=== PATIENT | female | born 1995 | race African-American/Black ===

== ENCOUNTER 2016-07-04 10:52 | Emergency (ER) | payer OTHER ==
[2016-07-04 10:55] VITALS: BP 122/76; PULSE 78; TEMP 98.1; BMI 34.7
--- NOTE | 2016-07-04 11:23 | PDOC ---
History of Present Illness - General Chief Complaint: Foreign Body (FB) Stated Complaint: IUD DISPLACEMENT Time Seen by Provider: 07/04/16 11:03 History Source: Patient Exam Limitations: No Limitations - History of Present Illness Initial Comments: 07/04/16 11:40 Chief Complaint: "My IUD is falling out" Pt. is a 20 y/o female with , who presents to the ED today c/o IUD problems. Her IUD was placed 3 mo ago by [facility]. Pt states that she started bleeding yesterday and that her IUD "did not feel in the right spot". She noticed the strings were closer to her vaginal opening. She would like her IUD removed at this time. Admits to vaginal bleeding, cramping. Denies unprotected sex, change in sexual partners, N/V/D, dysuria, frequency, fevers, chills, and abdominal pain. Past History - Travel Traveled outside of the country in the last 30 days: No Close contact w/someone who was outside of country & ill: No - Past Medical History Allergies/Adverse Reactions: Allergies Allergy/AdvReac Type Severity Reaction Status Date / Time shellfish derived Allergy Intermediate Difficulty Verified 07/04/16 10:55 Breathing Home Medications: Ambulatory Orders NK [No Known Home Medication] 07/04/16 Asthma: No Cancer: No Cardiac Disorders: No Diabetes: No HTN: No Seizures: No Thyroid Disease: No - Reproductive History (#): 1 Para: 0 Therapeutic (s) & number: No Spontaneous : 0 - Immunization History Immunization Up to Date: Yes - Psycho/Social/Smoking Cessation Hx Anxiety: No Suicidal Ideation: No Smoking History: Never smoked Have you smoked in the past 12 months: Yes Number of Cigarettes Smoked Daily: 4 If you are a former smoker, when did you quit?: 01/2013 Information on smoking cessation initiated: No 'Breaking Loose' booklet given: 11/28/15 Hx Alcohol Use: No Drug/Substance Use Hx: No Substance Use Type: None Hx Substance Use Treatment: No Review of Systems - Review of Systems Able to Perform ROS?: Yes Is the patient limited Czech proficient: No Constitutional: No: Chills, Fever, Weakness ABD/GI: Yes: Abdominal cramping. No: Diarrhea, Nausea, Vomiting : Yes: Other (Vaginal bleeding). No: Burning, Dysuria, Frequency, Hematuria *Physical Exam - Vital Signs Last Vital Signs Temp Pulse Resp BP Pulse Ox 98.1 F 78 18 122/76 100 07/04/16 10:54 07/04/16 10:54 07/04/16 10:54 07/04/16 10:54 07/04/16 10:54 - Physical Exam General Appearance: Yes: Nourished, Appropriately Dressed. No: Apparent Distress Female Pelvic Exam: positive: normal adnexa, normal size ovaries, CMT, vaginal bleeding, other (IUD is visible to examination prior to speculum placement. Strings remain in the vaginal canal, but the actual implant is freely hanging from vaginal canal. IUD is gently removed at this time. ). negative: cervical os closed, lesions, adnexal tenderness Gastrointestinal/Abdominal: positive: Normal Bowel Sounds, Flat, Soft. negative : Tender, Organomegaly Integumentary: positive: Normal Color, Dry, Warm Medical Decision Making - Medical Decision Making 07/04/16 11:50 Pt. is a 20 y/o female who presents with a dislodged IUD. The IUD was able to be removed at this time. Pt. has mild CMT most likely d/t the expulsion of the IUD. (-) adnexal tenderness. Pt. is actively menstruating at this time. Will obtain a urine . Explained to pt that she is no longer on any active control and that if she has unprotected sex, she can get . Advised to use condoms. 07/04/16 12:22 test is negative at this time. Bleeding is most likely d/t withdrawal from hormones. Will discharge home at this time. Pt. told to follow up with [facility] within the week. Pt. understands all discharge instructions and all questions were answered at this time. *DC/Admit/Observation/Transfer Diagnosis at time of Disposition: Menorrhagia due to intrauterine device (IUD) Foreign body of vagina Qualifiers: Encounter type: initial encounter Qualified Code(s): T19.2XXA - Foreign body in vulva and vagina, initial encounter - Discharge Dispostion Disposition: HOME Condition at time of disposition: Stable Admit: No - Referrals Referrals: Celina Cruz MD [Primary Care Provider] - - Patient Instructions Printed Discharge Instructions: DI for Intrauterine Device Removal Additional Instructions: Your IUD was removed today and your test is negative. Follow up with [facility] within the week to decide on an alternate form of control. You can get now that the IUD is removed. Use alternate forms of control such as condoms until you see your doctor. Your bleeding is most likely due to your period. You may use Tylenol or Motrin as needed for pain. Return to the ED if you have worsening abdominal pain, fevers, chills, or any changes in your symptoms. - Post Discharge Activity Work/School Note: Back to Work
== END 2016-07-04 12:39 | disposition home or self-care (01) ==
LOC: JER 10:52 → JERFT 10:52
PROC: 0UPD7HZ Removal of Contraceptive Device from Uterus and Cervix, Via Natural or Artificial Opening (ICD-10-PCS; principal; 2016-07-04)
DX: T83.83XA Hemorrhage due to genitourinary prosthetic devices, implants and grafts, initial encounter (principal); T83.32XA Displacement of intrauterine contraceptive device, initial encounter
CPT/HCPCS: 58301; 84703; 99281-25

== ENCOUNTER 2016-12-06 09:31 | Emergency (ER) | payer OTHER ==
[2016-12-06 09:41] VITALS: BP 117/69; PULSE 102; TEMP 98.7; BMI 34.7
[2016-12-06] MEDS ORDERED: IBUPROFEN 600 MG TABLET (FP) PO ONE ×2 (10:46→10:54)
[2016-12-06] MEDS ORDERED: ALBUTEROL SO4 2.5/IPRATROPIUM 0.5 INH SOL 3 ML VIAL.NEB. NEB ONE ×3 (10:46→11:21)
[2016-12-06] MEDS ORDERED: predniSONE 20 MG TABLET (UD) PO ONE (11:21)
--- NOTE | 2016-12-06 11:22 | PDOC ---
History of Present Illness - General Chief Complaint: Cold Symptoms Stated Complaint: CHEST PAIN Time Seen by Provider: 12/06/16 10:38 History Source: Patient Exam Limitations: No Limitations - History of Present Illness Initial Comments: 12/06/16 11:20 20 yr female no past medical history with cough and low back pain for 1 day no fever no chills. Pt denies abd pain , pt is a smoker. 12/06/16 13:11 Past History - Past Medical History Allergies/Adverse Reactions: Allergies Allergy/AdvReac Type Severity Reaction Status Date / Time shellfish derived Allergy Intermediate Difficulty Verified 12/06/16 09:41 Breathing Home Medications: Ambulatory Orders Albuterol Sulfate Inhaler - [Ventolin HFA Inhaler -] 1 - 2 inh PO Q4H #1 inhaler 12/06/16 Azithromycin [Zithromax 250mg Tablets -] 250 mg PO UTDICT #6 tab 12/06/16 Prednisone [Deltasone -] 40 mg PO DAILY #10 tablet 12/06/16 Asthma: No Cancer: No Cardiac Disorders: No COPD: No Diabetes: No HTN: No Seizures: No Thyroid Disease: No - Reproductive History (#): 1 Para: 0 Therapeutic (s) & number: No Spontaneous : 0 - Immunization History Immunization Up to Date: Yes - Suicide/Smoking/Psychosocial Hx Smoking History: Current every day smoker Have you smoked in the past 12 months: Yes Number of Cigarettes Smoked Daily: 4 If you are a former smoker, when did you quit?: 01/2013 Information on smoking cessation initiated: No 'Breaking Loose' booklet given: 11/28/15 Hx Alcohol Use: Yes (SOCIAL) Drug/Substance Use Hx: No Substance Use Type: None Hx Substance Use Treatment: No *Physical Exam - Vital Signs Last Vital Signs Temp Pulse Resp BP Pulse Ox 98.7 F 102 H 20 117/69 99 12/06/16 09:39 12/06/16 09:39 12/06/16 09:39 12/06/16 09:39 12/06/16 09:39 ED Treatment Course - Medications Given in the ED: ED Medications Discontinued Medications Generic Name Dose Route Start Last Admin Trade Name Freq PRN Reason Stop Dose Admin Albuterol/Ipratropium 1 amp 12/06/16 10:46 12/06/16 10:55 Duoneb - NEB 12/06/16 10:47 1 amp ONCE ONE Administration Ibuprofen 600 mg 12/06/16 10:46 12/06/16 10:55 Motrin - PO 12/06/16 10:47 600 mg ONCE ONE Administration Medical Decision Making - Medical Decision Making 12/06/16 11:20 cc: cough low back pain denies urinary dysfunction however pt states she is urinating more. vitals stable has history of bronchitis EKG done in triage pt c/o chest tightness EKG is NSR no ectopy or st elevation *DC/Admit/Observation/Transfer Diagnosis at time of Disposition: Bronchitis - Discharge Dispostion Disposition: HOME Condition at time of disposition: Good - Prescriptions Prescriptions: Prednisone [Deltasone -] 40 mg PO DAILY #10 tablet Albuterol Sulfate Inhaler - [Ventolin HFA Inhaler -] 1 - 2 inh PO Q4H #1 inhaler Azithromycin [Zithromax 250mg Tablets -] 250 mg PO UTDICT #6 tab - Referrals Referrals: Celina Cruz MD [Primary Care Provider] - - Patient Instructions Printed Discharge Instructions: DI for Acute Bronchitis Additional Instructions: take the medications as prescribed drink at least 2 liters of water a day get pleanty of rest follow with your doctor in 2-3 days for follow up Return to the ER if worse
[2016-12-06] MEDS ORDERED: predniSONE 20 MG TABLET (UD) ONE (12:14)
[2016-12-06 12:16] LABS: URINE APPEARANCE SLCLOUDY; URINE BILIRUBIN NEGATIVE (NEGATIVE); URINE BLOOD NEGATIVE (NEGATIVE); URINE COLOR STRAW; URINE GLUCOSE (UA) NEGATIVE (NEGATIVE); URINE KETONE TRACE (NEGATIVE); URINE NITRITE NEGATIVE (NEGATIVE); URINE PROTEIN NEGATIVE (NEGATIVE); URINE UROBILINOGEN NEGATIVE mg/dL (0.2-1.0)
[2016-12-06] MEDS ORDERED: ALBUTEROL SO4 0.083% IH SOL 2.5 MG/3 ML VIAL.NEB. NEB ONE ×2 (12:38→12:41)
[2016-12-06 14:45] LABS: URINE LEUK ESTERASE 1+ (NEGATIVE)
[2016-12-06 14:55] LABS: URINE BACTERIA MODERATE /hpf (NEGATIVE); URINE RBC 0-3 /hpf (0-3)
== END 2016-12-06 13:25 | disposition home or self-care (01) ==
LOC: JERFT 09:31
PROC: 3E0F7GC Introduction of Other Therapeutic Substance into Respiratory Tract, Via Natural or Artificial Opening (ICD-10-PCS; principal; 2016-12-06)
DX: J40 Bronchitis, not specified as acute or chronic (principal); F17.210 Nicotine dependence, cigarettes, uncomplicated
CPT/HCPCS: 71020-TC; 81003; 81015; 84703; 99281-25

== ENCOUNTER 2017-04-04 13:28 | Emergency (ER) | payer SELFPAY ==
[2017-04-04 13:42] VITALS: BP 119/64; PULSE 93; TEMP 98; BMI 34.7
[2017-04-04] MEDS ORDERED: DIPHTH,PERTUSS(ACELL),TET 0.5 ML DISP.SYRIN IM ONE (14:40)
--- NOTE | 2017-04-04 14:40 | PDOC ---
History of Present Illness - General Chief Complaint: Abscess Boil Stated Complaint: ABSCESS/ LT AXILLA Time Seen by Provider: 04/04/17 14:10 History Source: Patient Exam Limitations: No Limitations - History of Present Illness Initial Comments: 04/04/17 14:40 this is a 21-year-old woman without significant past medical history who presents emergency Department with "painful bumps in my armpits." Patient states that approximately 3 days ago she noticed slight pain in bilateral axilla which worsens with movement. Over the past 2 days she's noticed the pain is localized to 2 abscesses one in each axilla that have progressively grown in size. Patient states she shaved her armpits last week. She denies fevers, chills , shortness of breath, chest pain. Past History - Past Medical History Allergies/Adverse Reactions: Allergies Allergy/AdvReac Type Severity Reaction Status Date / Time shellfish derived Allergy Intermediate Difficulty Verified 04/04/17 13:39 Breathing Home Medications: Ambulatory Orders NK [No Known Home Medication] 04/04/17 Asthma: No Cancer: No Cardiac Disorders: No COPD: No Diabetes: No HTN: No Seizures: No Thyroid Disease: No Other medical history: DENIES. - Reproductive History (#): 1 Para: 0 Therapeutic (s) & number: No Spontaneous : 0 - Immunization History Immunization Up to Date: Yes - Suicide/Smoking/Psychosocial Hx Smoking History: Current every day smoker Have you smoked in the past 12 months: Yes Number of Cigarettes Smoked Daily: 4 If you are a former smoker, when did you quit?: 01/2013 Information on smoking cessation initiated: No 'Breaking Loose' booklet given: 11/28/15 Hx Alcohol Use: Yes (SOCIAL) Drug/Substance Use Hx: No Substance Use Type: None Hx Substance Use Treatment: No Review of Systems - Review of Systems Able to Perform ROS?: Yes Is the patient limited [place] proficient: No Constitutional: No: Symptoms Reported HEENTM: No: Symptoms Reported Respiratory: No: Symptoms reported Cardiac (ROS): No: Symptoms Reported ABD/GI: No: Symptoms Reported : No: Symptoms Reported Musculoskeletal: No: Symptoms Reported Integumentary: Yes: See HPI Neurological: No: Symptoms reported *Physical Exam - Vital Signs Last Vital Signs Temp Pulse Resp BP Pulse Ox 98 F 93 H 17 119/64 100 04/04/17 13:39 04/04/17 13:39 04/04/17 13:39 04/04/17 13:39 04/04/17 13:39 - Physical Exam General Appearance: Yes: Appropriately Dressed. No: Apparent Distress Respiratory/Chest: positive: Lungs Clear, Normal Breath Sounds. negative: Respiratory Distress, Accessory Muscle Use Integumentary: positive: Dry, Warm, Other (2.5 cm x 1.5 cm area of fluctuance located in the left axilla. 1.5X 1.5 cm area of fluctuance noted in the right axilla.). negative: Swelling Procedures - Consent Consent obtained: Verbal, From Patient - Incision and Drainage I&D Site: Bilateral: Axilla Betadine cleansed: Yes Anesthesia: 1% Lidocaine Volume(ml): 4 Blade Size: 11 Attempts: 1 Complications: none Dressing: Yes Progress: 04/04/17 15:07 Patient tolerated procedure well Medical Decision Making - Medical Decision Making 04/04/17 14:43 A/P: 21-year-old female with out significant past medical history with abscess in right and left axilla. 2.5 x 1.5 cm nondraining area of fluctuance present in left axilla 1.51.5 cm nondraining area of fluctuance present right axilla. I&D of abscesses. See procedure note for details. Discharge *DC/Admit/Observation/Transfer Diagnosis at time of Disposition: Abscess of axilla, left, Abscess of axilla, right - Discharge Dispostion Disposition: HOME Condition at time of disposition: Stable Admit: No - Referrals - Patient Instructions Printed Discharge Instructions: DI for Incision and Drainage of a Skin Abscess Additional Instructions: You do need to antibiotics after receiving incision and drainage treatment. Take Tylenol or Motrin as needed for fevers and pain. Follow manufacturers instructions for appropriate dosage. Return to the emergency department or your primary doctor in 7-10 days for reevaluation of wound. Return to emergency department sooner if he notices any fevers, chills, severe pain, drainage from the site, or any other concerns. Thank you very much for choosing us to provide your emergent healthcare needs. - Post Discharge Activity Forms/Work/School Notes: Back to Work
== END 2017-04-04 15:34 | disposition home or self-care (01) ==
LOC: JERFT 13:28
PROC: 0H9CXZZ Drainage of Left Upper Arm Skin, External Approach (ICD-10-PCS; principal; 2017-04-04)
DX: L02.412 Cutaneous abscess of left axilla (principal); L02.411 Cutaneous abscess of right axilla
CPT/HCPCS: 90715; 99281-25

== ENCOUNTER 2018-06-15 18:35 | Emergency (ER) | payer OTHER ==
[2018-06-15 18:43] VITALS: BP 111/67; PULSE 89; TEMP 98; BMI 35.4
--- NOTE | 2018-06-15 19:12 | PDOC ---
History of Present Illness - General Chief Complaint: Vomiting/Diarrhea Stated Complaint: VOMITING/ABD PAIN/VAG BLEEDING Time Seen by Provider: 06/15/18 19:11 History Source: Patient Exam Limitations: No Limitations - History of Present Illness Initial Comments: 06/15/18 19:28 22 yo F with no significant PMHx presents with abdominal pain for two days. She states that for past two days she has had intermittent abdominal pain but today it worsened which prompted trip to ER. She describes intermittent right and left lower quadrant pain that is 9/10 and sharp in nature. Pain is accompanied by chills and bilious vomiting x1 and 4 more episodes with no blood or bile. She also endorses 5 episode of non bloody diarrhea. She denies sick contacts or change in eating habits. She denies dysuria but does have vaginal spotting that started today that is getting heavier. LMP was 05/22/18 and she is usually regular. She is sexually active and there is a possibility that she may be . Denies CP,HERNANDEZ, SOB, palpitations, or fever. Timing/Duration: 4-6 hours Past History - Past Medical History Allergies/Adverse Reactions: Allergies Allergy/AdvReac Type Severity Reaction Status Date / Time shellfish derived Allergy Intermediate Difficulty Verified 06/15/18 18:39 Breathing Home Medications: Ambulatory Orders NK [No Known Home Medication] 04/04/17 Asthma: No Cancer: No Cardiac Disorders: No COPD: No Diabetes: No HTN: No Seizures: No Thyroid Disease: No - Family Disease History Family Disease History: Diabetes: Grandparents (Sickle cell disease), Other: Grandparents, Father (Hep c), Mother (Hep c of liver failure) - Reproductive History LMP Normal: Yes Is Patient Now?: No (#): 1 Para: 0 Therapeutic (s) & number: No Spontaneous : 0 - Immunization History Immunization Up to Date: Yes - Suicide/Smoking/Psychosocial Hx Smoking Status: Yes Smoking History: Current every day smoker Have you smoked in the past 12 months: Yes Number of Cigarettes Smoked Daily: 5 If you are a former smoker, when did you quit?: 01/2013 Information on smoking cessation initiated: Yes 'Breaking Loose' booklet given: 11/28/15 Hx Alcohol Use: No Drug/Substance Use Hx: Yes Substance Use Type: Marijuana Hx Substance Use Treatment: No Lives with/in: grandparent(s) Review of Systems - Review of Systems Able to Perform ROS?: Yes Is the patient limited Kazakh proficient: No Constitutional: Yes: Weakness HEENTM: No: Recent change in vision Respiratory: No: Cough, Orthopnea, Shortness of Breath Cardiac (ROS): No: Chest Pain, Edema, Irregular Heart Rate, Lightheadedness, Palpitations ABD/GI: Yes: Diarrhea, Nausea, Poor Fluid Intake. No: Blood Streaked Bowels Musculoskeletal: No: Joint Pain Neurological: No: Headache, Paresthesia Psychiatric: No: Anxiety, Depression *Physical Exam - Vital Signs Last Vital Signs Temp Pulse Resp BP Pulse Ox 98 F 89 18 111/67 100 06/15/18 18:39 06/15/18 18:39 06/15/18 18:39 06/15/18 18:39 06/15/18 18:39 - Physical Exam General Appearance: Yes: Appropriately Dressed, Apparent Distress HEENT: positive: Normal ENT Inspection, Normal Voice Neck: positive: Trachea midline, Supple Respiratory/Chest: positive: Lungs Clear, Normal Breath Sounds. negative: Respiratory Distress, Accessory Muscle Use Cardiovascular: positive: Regular Rhythm, Regular Rate, S1, S2. negative: Edema , JVD, Murmur Gastrointestinal/Abdominal: positive: Normal Bowel Sounds, Tender, Flat, Soft. negative: Pulsatile Mass, Rebound, Hepatomegaly Musculoskeletal: negative: CVA Tenderness Extremity: positive: Normal Inspection, Normal Range of Motion Integumentary: positive: Normal Color Neurologic: positive: whiskey regauger II-XII NML intact, Fully Oriented, Alert, Normal Mood/ Affect, Motor Strength 5/5 ED Treatment Course - LABORATORY CBC & Chemistry Diagram: 06/15/18 20:08 06/15/18 20:08 Medical Decision Making - Medical Decision Making 06/15/18 19:39 22 yo F with no significant PMHx presents with abdominal pain for two days. She states that for past two days she has had intermittent abdominal pain but today it worsened which prompted trip to ER. Given history differential includes but not limited to enteritis/colitis, , and appendicitis. Will obtain CBC, CMP , ua, test and perform pelvic exam. Will start IVF with NS 1L bolus. 06/15/18 20:45 CBC, CMP, UA have all returned WNL. Urine test was negative. Patient ordered Reglan and Bentyl. Will reassess in 30 min. 06/15/18 21:48 Patient feeling much better. PO challenge was successful. Will discharge with GI precautions. *DC/Admit/Observation/Transfer Diagnosis at time of Disposition: Enteritis - Discharge Dispostion Disposition: HOME Condition at time of disposition: Stable Decision to Admit order: No - Referrals Referrals: Celina Cruz MD [Primary Care Provider] - - Patient Instructions Printed Discharge Instructions: DI for Viral Gastroenteritis -- Adult Additional Instructions: Increase activity as tolerated. Resume a regular diet. Follow up with your primary doctor next week. If pain worsens, you develop fever, chills, or bloody diarrhea please return to ER immediately . - Post Discharge Activity
[2018-06-15] MEDS ORDERED: SODIUM CHLORIDE 1,000 ML IV STA (19:27)
--- NOTE | 2018-06-15 19:52 | PDOC ---
Documentation entered by Danny Ball SCRIBE, acting as scribe for Vicky Navas MD. Vicky Navas MD: This documentation has been prepared by the Lizzy hernandez Xhesika, SCRIBE, under my direction and personally reviewed by me in its entirety. I confirm that the documentation accurately reflects all work, treatment, procedures, and medical decision making performed by me. Attending Attestation - Resident Resident Name: Mikhail Will - ED Attending Attestation I have performed the following: I have examined & evaluated the patient, The case was reviewed & discussed with the resident, I agree w/resident's findings & plan, Exceptions are as noted - HPI HPI: 06/15/18 19:48 The patient is a 22 year old female with no significant past medical history of who presents to our ED with 2 days of worsening abdominal pain. The patient describes the abdominal pain as "sharp" bilateral lower quadrant pain, 9/10 in severity. The patient states she endorsed chills, 1 episode of bilious vomiting and 4 episodes of watery vomiting, and 1 episodes of nbnb diarrhea today. The patient states her LMP was 05/22/18, however, she has some vaginal bleeding that started today. The patient states she is sexually active. The patient denies sick contact. The patient denies eating any new or raw food. The patient denies chest pain, shortness of breath or dizziness. The patient denies fever or constipation. The patient denies dysuria, frequency, or urgency. Allergy: NKDA. Shellfish Derived Surgical History: None reported Social History: Current Everyday smoker PCP: Celina Cast - Physicial Exam PE: 06/15/18 19:29 GENERAL: The patient is in no acute distress. ENT: Ears normal, nares patent, oropharynx clear without exudates. Moist mucous membranes. NECK: Normal range of motion, supple LUNGS: Breath sounds equal, clear to auscultation bilaterally. No wheezes, and no crackles. HEART:Regular rate and rhythm, normal S1 and S2 without murmur, rub or gallop. ABDOMEN: Soft, mild right lower abdominal and suprapubic tenderness, no involuntary guarding EXTREMITIES: Normal range of motion, no edema. NEUROLOGICAL: Cranial nerves II through XII grossly intact. Normal speech. No focal neurological deficits. SKIN: Warm, Dry, normal turgor 06/15/18 20:08 - Medical Decision Making 06/15/18 20:08 22 yo F presenting to the ER with a complaint of abdominal pain, vomiting, diarrhea and vaginal bleeding Pt has had abdominal pain for approximately 2 days Today she began having vomiting (5-6 episodes, non bloody, non bilious) and diarrhea (5 episodes, loose stools) Abdominal pain is intermittent, crampy No fevers (+) chills no ill contacts, no raw foods, no recent travel On examination, pt has right sided abdominal pain DD: Gastroenteritis, Colitis, Appendicitis possible, torsion/PID Will do: Labs IVF Reglan Bentyl Pelvic examination UA Re assess 06/15/18 20:12 06/15/18 20:22 Laboratory Tests 06/15/18 06/15/18 20:00 20:08 WBC 8.8 Hgb 14.6 Hct 44.1 D Plt Count 339 D Urine Ketones Negative Urine Blood 2+ H Urine Nitrite Negative Ur Leukocyte Esterase Negative Urine WBC (Auto) 0 Urine RBC (Auto) 1 06/15/18 20:44 Laboratory Tests 06/15/18 20:08 Sodium 140 Potassium 3.8 Chloride 108 H Carbon Dioxide 26 BUN 8 Creatinine 0.8 Random Glucose 80
[2018-06-15] MEDS ORDERED: DICYCLOMINE HCL 10 MG CAPSULE PO ONE (20:10)
[2018-06-15] MEDS ORDERED: METOCLOPRAMIDE HCL INJECTION 10 MG/2 ML VIAL IVPUSH ONE (20:10)
[2018-06-15 20:16] LABS: BASO % 1.1 % (0-2.0); EOS % 0.9 % (0-4.5); HEMATOCRIT 44.1 % (32.4-45.2); HEMOGLOBIN 14.6 GM/dL (10.7-15.3); LYMPH % 33.9 % (8-40); MCH 31.7 pg (25.7-33.7); MCHC 33.2 g/dl (32.0-36.0); MEAN CELL VOLUME 95.7 fl (80-96); MEAN PLT VOLUME 7.5 fl (7.5-11.1); MONO % 6.8 % (3.8-10.2); NEUT % 57.3 % (42.8-82.8); PLATELET COUNT 339 K/MM3 (134-434); RDW 14.9 % (11.6-15.6); WHITE BLOOD COUNT 8.8 K/mm3 (4.0-10.0)
[2018-06-15 20:17] LABS: EPI CELLS 0.5 /HPF (0-5/HPF); PH,URINE 8.5 (5.0-8.0); URINE APPEARANCE CLEAR; URINE BACTERIA 12.7 /hpf (NEGATIVE); URINE BILIRUBIN NEGATIVE (NEGATIVE); URINE CASTS 0 /lpf (0-8); URINE COLOR YELLOW; URINE GLUCOSE (UA) NEGATIVE (NEGATIVE); URINE KETONE NEGATIVE (NEGATIVE); URINE LEUK ESTERASE NEGATIVE (NEGATIVE); URINE NITRITE NEGATIVE (NEGATIVE); URINE PROTEIN NEGATIVE (NEGATIVE); URINE RBC 1 /hpf (0-4); URINE UROBILINOGEN 0.2 mg/dL (0.2-1.0); URINE WBC 0 /hpf (0-5)
[2018-06-15] MEDS ORDERED: METOCLOPRAMIDE HCL INJECTION 10 MG/2 ML VIAL ONE (20:31)
[2018-06-15] MEDS ORDERED: DICYCLOMINE HCL 10 MG CAPSULE ONE ×2 (20:31→20:41)
[2018-06-15 20:41] LABS: ALBUMIN 4.3 g/dl (3.4-5.0); BILIRUBIN,TOTAL 0.5 mg/dL (0.2-1); CALCIUM 9.3 mg/dL (8.5-10.1); CREATININE 0.8 mg/dL (0.55-1.3); POTASSIUM 3.8 mmol/L (3.5-5.1); TOT PROT 7.8 g/dl (6.4-8.2)
== END 2018-06-15 22:15 | disposition home or self-care (01) ==
LOC: JER 18:35
PROC: 3E033GC Introduction of Other Therapeutic Substance into Peripheral Vein, Percutaneous Approach (ICD-10-PCS; principal; 2018-06-15)
PROC: 3E0337Z Introduction of Electrolytic and Water Balance Substance into Peripheral Vein, Percutaneous Approach (ICD-10-PCS; 2018-06-15)
DX: K52.9 Noninfective gastroenteritis and colitis, unspecified (principal); F17.210 Nicotine dependence, cigarettes, uncomplicated
CPT/HCPCS: 36415; 80053; 81003; 84703; 85025; 99281-25; J7030